=== PATIENT | female | born 1950 | race Caucasian/White ===

== ENCOUNTER 2017-06-25 10:46 | Outpatient (CLI) | payer MEDICARE, MEDICAID ==
[~2017-06-25] VITALS: Ht 160 cm; Wt 104.1 kg
--- NOTE | ~2017-06-25 | HEMODYNAMI ---
PATIENT:SOHAIL JORGE MEDICAL RECORD: [id number] : 52 LOCATION:[facility] ADMISSION DATE: 06/25/17 Generatedon:06/25/201714:01 Patient name: SOHAIL JORGE Patient #: [id number] : 1950 Date of study: 06/25/2017 Page: Of Hemodynamic Procedure Report Patient Data Patient Demographics Procedure consent was obtained First Name: SOHAIL Gender: Female Last Name: LUISITO : 1950 Middle Initial: A Age: 66 year(s) Patient #: [id number] Race: Unknown SSN: [id number] Additional ID: [id number] Contact details [address]: [address] [place] [address] State: [place] City: [place] Zip code: [address] Admission Admission Data Admission Date: 06/25/2017 Admission Time: 10:46 Arrival Date: 06/25/2017 Arrival Time: 13:03 Admit Source: Other Insurance Payor: Medicare Height (in.): 63 BSA: 2.06 (m2) Height (cm.): 160.02 BMI: 40.92 (kg/m2) Weight (lbs.): 231 Weight (kg.): 104.78 Lab Results Lab Result Date: 06/25/2017 Lab Result Time: 0:00 Biochemistry Name Units Result Min Max BUN mg/dl 28 --(----)-* 7 18 Creatinine mg/dl 1.6 --(----)-* 0.6 1.3 CBC Name Units Result Min Max Hemoglobin g/dl 13.3 -*(----)-- 13.5 17.5 Procedure Procedure Types Cath Procedure Diagnostic Procedure PPM/ICD PPM Dual Implant Miscellaneous Procedures Moderate Sedation up to 30 minutes Procedure Description Procedure Date Procedure Date: 06/25/2017 Procedure Start Time: 13:24 Procedure End Time: 13:59 Procedure Staff Name Function Sandeep Mariscal MD Performing Physician Hanh BRO Scrub Ana Alexandre RN Nurse Zunilda Gardner RT Monitor Prateek Meng MD Assisting physician Indication Sick Sinus Syndrome Procedure Data Cath Procedure Fluoroscopy Diagnostic fluoroscopy Total fluoroscopy Time: 2.2 time: 2.2 min min Diagnostic fluoroscopy Total fluoroscopy dose: dose: 98.49 mGy 98.49 mGy Contrast Material Contrast Material Type Amount (ml) Isovue 300 0 Estimated blood loss: 5 ml Procedure Complications No complications Procedure Medications Medication Administration Route Dosage Oxygen NC 2 l/min Ancef (1Gm/50ml NS) I.V.P.B 1 g Ancef Irrigation Topical 1 g (1gm/500ml NS) Versed I.V. 1 mg Fentanyl I.V. 50 mcg Hemodynamics Rest BSA: 2.06 (m2) HGB: 13.3 (g/dl) O2 Consumption: Estimated: 174.06 (ml/min) O2 Co nsumption indexed: Estimated:84.5 (ml/min/m) Heart Rate: 46 (bpm) Snapshots Pre Cath Intra NCS Post Cath Vital Signs Time Heart Resp SPO2 NIBP (mmHg) Rhythm Pain Sedation Rate (ipm) (%) Status Level (bpm) 13:02:17 45 22 98 167/65(126) SB 0 (11) 10(A) , No pain 13:07:06 46 21 98 158/66(127) SB 0 (11) 10(A) , No pain 13:11:48 45 20 98 163/73(127) SB 0 (11) 10(A) , No pain 13:16:37 46 18 98 153/63(121) SB 0 (11) 10(A) , No pain 13:21:18 47 19 98 156/69(122) SB 0 (11) 10(A) , No pain 13:26:00 46 20 98 151/68(119) SB 0 (11) 10(A) , No pain 13:30:39 47 17 96 151/73(132) SB 0 (11) 10(A) , No pain 13:35:15 50 19 94 166/81(133) SB 0 (11) 10(A) , No pain 13:40:00 57 18 94 160/77(126) SB 0 (11) 10(A) , No pain 13:44:43 54 17 94 152/73(130) SB 0 (11) 10(A) , No pain 13:49:23 23 19 95 165/72(122) SB 0 (11) 10(A) , No pain 13:54:08 60 17 97 162/77(129) NSR 0 (11) 10(A) , No pain 13:58:53 39 17 97 142/65(114) NSR 0 (11) 10(A) , No pain Medications Time Medication Route Dose Verified Delivered Reason Notes Effective ness by by 13:11:42 Oxygen NC 2 Ana Perez Per l/min Bettie Alexandre RN physician 13:12:16 Ancef I.V.P.B 1 g Ana Perez Per (1Gm/50ml Bettie Alexandre RN physician NS) 13:12:27 Ancef Topical 1 g Marlinie Raman Per Irrigation Bettie CORREA Breving physician (1gm/500ml MD NS) 13:25:04 Versed I.V. 1 mg Ana Isaacie for Bettie Alexandre RN sedation 13:25:10 Fentanyl I.V. 50 Buffie Buffie for mcg Bettie Alexandre RN sedation Procedure Log Time Note 12:41:43 Informed consent obtained and on chart 12:41:52 Diagnostic Cath Status : Elective 12:42:34 Indication : Sick Sinus Syndrome 12:43:04 Admit Source: Other 12:43:06 Arrival Date: 06/25/2017 1:03:00 PM 12:43:22 Insurance Payor : Medicare 12:43:26 Patient Height : 160.02 cm 12:43:39 Patient Weight : 104.78 kg 12:45:48 Lab Result : Creatinine 1.6 mg/dl 12:45:48 Lab Result : BUN 28 mg/dl 12:45:48 Lab Result : Hemoglobin 13.3 g/dl 12:45:55 Ana Alexandre RN sent for patient. Start room use. 12:45:57 Time tracking: Regular hours 12:46:01 Plan of Care:Hemodynamics will remain stable., Cardiac rhythm will remain stable., Comfort level will be maintained., Respiratory function will remain adequate., Patient/ family verbilizes understanding of procedure., Procedure tolerated without complication., Recovers from procedure without complications.. 12:46:22 Patient received from Pre/Post Procedure Room to [facility] 3 Alert and oriented. Tansferred to table in Supine position. 12:46:24 Warm blankets applied, and za hugger turned on for patient comfort. 12:46:24 Correct patient and procedure confirmed by team. 12:46:25 ECG and BP/O2 sat monitors applied to patient. 12:46:37 Use device set Pacemaker Set 12:46:43 Cautery Tip Automotive Machinist opened to sterile field. 12:46:44 Cautery Pushbutton Pencil opened to sterile field. 12:46:52 Immobilizer Extra Large opened to sterile field. 12:47:36 2.0 Ticron Multipack opened to sterile field. 12:47:38 3.0 Vicryl Single Pack [id number] opened to sterile field. 12:47:39 3.0 Vicryl Multipack [id number] opened to sterile field. 12:48:00 avVentatronic Adapta PPM Dual Generator opened to sterile field. 13:00:36 Vital chart was started 13:00:43 Baseline sample Acquired. 13:01:04 Rhythm: unchanged., sinus bradycardia 13:01:06 Full Disclosure recording started 13:03:40 H&P Date Dictated: 06/19/2017 Within 30 days and on chart., H&P Addendum completed by physician on day of procedure. (MUST COMPLETE FOR ALL OUTPATIENTS). 13:03:42 Pre-procedure instructions explained to patient. 13:03:43 Pre-op teaching completed and patient verbalized understanding. 13:03:46 Family in waiting room. 13:03:50 Patient NPO since Midnight. 13:04:14 Is the patient allergic to Iodine/contrast media? No. 13:05:10 Was the patient premedicated? No 13:05:11 Is patient on blood thinner?No 13:05:12 Patient diabetic? Yes. 13:05:13 If diabetic: On Metformin? Yes 13:05:17 If on Metformin: Last Dose? 06/25/2017 13:05:21 Previous problem with sedation/anesthesia? No ? 13:05:22 Snore? Yes 13:05:23 Sleep apnea? No 13:05:24 Deviated septum? No 13:05:24 Opens mouth fully? Yes 13:05:25 Sticks out tongue? Yes 13:05:34 Airway obstruction? No ? 13:05:37 Dentures? No ? 13:05:41 Pre procedure: right dorsailis pedis pulse 1+ Palpable, but thready & weak; easily obliterated 13:05:44 Patient pain scale 0/10 ?. 13:09:39 IV patent on arrival in left forearm with 0.9% NaCl at [facility]. 13:09:45 Lab results completed and on chart. 13:09:49 Left chest area was prepped with chlora-prep and draped in sterile fashion 13:09:51 Alarms reviewed by R. N. 13::51 Sharps counted by scrub and verified by R.N. 13::52 Physician paged 13:11:42 Oxygen 2 l/min NC was administered by Ana Alexandre RN; Per physician; 13:12:16 Ancef (1Gm/50ml NS) 1 g I.V.P.B was administered by Ana Alexandre RN; Per physician; 13:12:27 Ancef Irrigation (1gm/500ml NS) 1 g Topical was administered by Raman Osorio MD; Per physician; 13:12:43 Medtronic 4574-45 PPM Lead opened to sterile field. 13:15:14 Medtronic 4074-52 PPM Lead opened to sterile field. 13:22:54 5.0 Monocryl PS2 [id number] opened to sterile field. 13:23:46 Physician arrived 13:23:47 --------ALL STOP TIME OUT------ 13:23:49 Final Timeout: patient, procedure, and site verified with staff and physician. All members of the team are in agreement. 13:23:51 Left chest site verified by team. 13:23:56 Physical assessment completed. ASA score P 2 - A patient with mild systemic disease as per Sandeep Mariscal MD. 13:24:00 Sedation plan: IV Moderate Sedation Versed, Fentanyl 13:24:39 Procedure started. 13:24:49 Medtronic field representative Jose Lucio present for procedure. 13:25:04 Versed 1 mg I.V. was administered by Ana Alexandre RN; for sedation; 13:25:06 Pre sharps counted by scrub and verified by RN: Sutures: 15 Sponges: 5 Stick needles: 2 Skin needles: 2 Blade: 1 Cautery: 1 13:25:09 Grounding pad site Left thigh. 13:25:10 Fentanyl 50 mcg I.V. was administered by Ana Alexandre RN; for sedation; 13:25:11 Grounding pad site free from injury. 13:28:53 Lidocaine 1% w/epi to left subclavicular area by Prateek Meng MD. 13:28:57 Incision made to left subclavicular area. 13:31:36 Generator pocket made/opened. 13:32:27 Left subclavian vein accessed with 7Fr Safe Sheath. 13:34:51 Ventricular lead inserted and advanced. 13:34:53 Peel-a-way sheath was split and removed. 13:35:54 Left subclavian vein accessed with 7Fr Safe Sheath. 13:36:00 Atrial lead inserted and advanced. 13:36:02 Peel-a-way sheath was split and removed. 13:39:52 Ventricular lead positioned. 13:42:16 Atrial lead positioned. 13:42:26 Ventricular lead attachment was completed with 2-0 ticron. 13:42:29 Atrial lead attachment was completed with 2-0 ticron. 13:49:22 PPM Dual was attached to lead(s) and inserted into pocket. 13:49:47 Generator was sutured in place with 2-0 ticron. 13:50:17 Parameters--Ventricular P/R Wave: 5.0mV. Current: 0.1mA; Threshold: 1.0V; Impedence: 1477OHMS. 13:50:39 Parameters--Atrial P/R Wave: 2.9mV. Current: 0.5mA; Threshold: 0.6V; Impedence: 646OHMS. 13:54:03 Subcutaneous closure was completed with 3-0 vicryl. 13:56:27 Skin closure was completed with 5-0 monocryl. 13:57:20 Lt Chest incision was dressed with Mepilex dressing. 13:57:29 Procedure ended.(Physican Out) 13:57:43 Fluoroscopy time 02.20 minutes. 13:58:01 Fluoroscopy dose: 98.49 mGy 13:58:01 Flurop Dose total: 98.49 13:58:06 Contrast amount:Isovue 300 0ml. 13:58:08 Sharps counted by scrub and verified by R.N. 13:58:09 Insertion/operative site no bleeding no hematoma. 13:58:16 Post left subclavian vein:stable 13:58:19 Post Procedure Pulses reassessed and unchanged 13:58:28 Post procedure rhythm: sinus rhythm , paced 13:58:30 Estimated blood loss: 5 ml 13:58:31 Post procedure instruction explained to patient.Patient verbalizes understanding. 13:58:32 Patient needs reinforcement of post procedure teaching. 13:58:51 Procedure type changed to Cath procedure, Diagnostic procedure, PPM/ICD, PPM Dual Implant, Miscellaneous Procedures, Moderate Sedation up to 30 minutes 13:58:52 Procedure and supply charges have been captured, reviewed, submitted and are correct. 13:58:56 Procedure Complication : No complications 13:59:00 Vital chart was stopped 13:59:00 See physician's report for complete and final results. 13:59:03 Report given to Med II. 13:59:06 Patient transfered to Med II with Stretcher. 13:59:08 Procedure ended. 13:59:08 Full Disclosure recording stopped 13:59:12 End room use (Document Last) Device Usage Item Name Manufacture Quantity Catalog Hospital Part Current Minimal Lot# / Number Charge Number Stock Stock Serial# Code Cautery Tip Microtek 1 [id number] [id number] [id number] 5 [employer] Inc. Cautery Microtek 1 [id number] 394550 07910 136655 5 Pushbutton [employer] Inc. Pencil Immobilizer [place] 1 [id number] [id number] 011193 443915 5 Extra Large Health 2.0 Ticron Ethicon 4 [id number] 472632 73427 755015 5 Multipack 3.0 Vicryl Ethicon 1 [id number] 382938 099269 770217 5 Single Pack [id number] 3.0 Vicryl Ethicon 1 [id number] 774702 877877 493063 5 Multipack [id number] Medtronic Medtronic 1 [id number] 605184 990230 5 [id number] Adapta PPM UPA03-10-21 Dual Generator Medtronic Medtronic 1 4574-45 298161 811435 5 [id number] 4574-45 PPM EXP Lead 11-14-2018 Medtronic Medtronic 1 4074-52 832971 289866 5 [id number] 4074-52 PPM EXP Lead 06-05-2018 5.0 Ethicon 1 [id number] 325451 426918 258855 5 Monocryl PS2 Y495G Signature Audit [place] Stage Time Signature Unsigned Intra-Procedure 06/25/2017 Zunilda Gardner 2:01:10 PM RT(R) Signatures Monitor : Zunilda Gardner RT Signature : Date : Time : [address] [place] [id number]
[2017-06-25] MEDS ORDERED: GLUCOPHAGE500 MG PO (11:04)
[2017-06-25] MEDS ORDERED: METFORMIN HCL500 M1 PO (11:04)
[2017-06-25] MEDS ORDERED: BAYER CHEWABLE81 MG PO (11:05)
[2017-06-25] MEDS ORDERED: GLUCOTROL 5 MG T5 MG PO ×2 (11:05)
[2017-06-25] MEDS ORDERED: NEURONTIN 300300 MG PO (11:06)
[2017-06-25] MEDS ORDERED: PRINIVIL10 MG PO (11:07)
[2017-06-25] MEDS ORDERED: XANAX2 MG PO (11:08)
[2017-06-25 11:12] VITALS: BP 156/81; BMI 40.6
[2017-06-25 11:19] LABS: HEMATOCRIT 41.6 % (36.0-48.0); HEMOGLOBIN 13.3 g/dL (12-16); MCH 30.6 pg (26.0-34.0); MCV 95.6 fL (80.0-100.0); RBC 4.35 10x6/uL (4.00-5.40); WBC 10.7 10x3/uL (4.8-10.8)
[2017-06-25 11:35] LABS: ANION GAP 13.5 mmol/L (8-16); CALCIUM 9.7 mg/dL (8.5-10.1); CARBON DIOXIDE 29.6 mmol/L (21.0-32.0); CREATININE - SERUM 1.6 mg/dL (0.6-1.3); POTASSIUM - SERUM 5.1 mmol/L (3.5-5.1)
[2017-06-25 12:12] LABS: APTT 23.7 SECONDS (22.8-39.4); INR 0.96 (0.85-1.17); PROTIME 12.7 SECONDS (11.6-15.0)
--- NOTE | 2017-06-25 14:23 | NUR ---
TRANSFER FROM PLANNING ENGINEER. VS WNL. LEFT CHEST DRSG CLEAN AND DRY. LEFT ARM IN SLING. WILL CONT. PLAN OF CARE.
[2017-06-25 14:25] VITALS: BP 152/62; Ht 160 cm; Wt 104.1 kg
--- NOTE | 2017-06-25 19:23 | NUR ---
RESUMED CARE OF PT, LYING IN BED RESPIRATIONS EVEN AND UNLABORED ON ROOM AIR. 60 SR ON TELEMETRY. LEFT CHEST DRESSING C/D/I AND LEFT SLING IN PLACE. NO NEEDS NOTED AT THIS TIME, WILL CONTINUE TO MONITOR. SEE NURSE ASSESSMENT.
[2017-06-25 20:00] VITALS: BP 107/59
--- NOTE | 2017-06-26 01:07 | NUR ---
CALL LIGHT IN REACH. WILL CONTINUE TO MONITOR.
[2017-06-26 05:11] VITALS: BP 122/65
--- NOTE | 2017-06-26 08:14 | OP ---
PATIENT NAME: SOHAIL JORGE MEDICAL RECORD: [id number] :52 LOCATION:D.M2 D.2115 ADMISSION DATE: SURGEON: YANELY MORENO MD DATE OF OPERATION: 06/25/2017 PROCEDURE: Lead portion of permanent pacemaker placement. SURGEON: Prateek Meng MD. INDICATION: Symptomatic bradyarrhythmias. DESCRIPTION OF PROCEDURE: After left subclavian vein was cannulated, Dr. Meng did the modified Seldinger technique. First, under fluoroscopic guidance, I placed the RV lead in the RV apex without difficulty. Next, after adequate thresholds and R-wave were obtained, again under fluoroscopic guidance, I placed the right atrial lead into the right atrial appendage without difficulty. After P-waves and thresholds were obtained, the leads were attached to appropriate poles of the generator and the pocket was closed by Dr. Meng. IMPRESSION: Successful lead portion of permanent pacemaker placement. ESTIMATED BLOOD LOSS: Minimal. DISPOSITION: To the floor, stable. COMPLICATIONS: None. TRANSINT:[id number] Voice Confirmation ID: [id number] DOCUMENT ID: [id number] YANELY MORENO MD at 0814 CC: [id number] DICTATION DATE: 06/25/17 1354 MANAGER MUTUAL FUND: 06/25/172027 REG [facility] [address] [place] [address]
[2017-06-26 08:33] VITALS: BP 127/55
--- NOTE | 2017-06-26 09:58 | NUR ---
TELEMETRY PACED. METRONICS INTEROGATED PACEMAKER. LEFT CHEST DRSG CLEAN AND DRY. LEFT ARM IN SLING. UP TO CHAIR WITH CALL LIGHT IN REACH. WILL CONT. PLAN OF CARE.
--- NOTE | 2017-06-26 10:29 | NUR ---
IV AND TELEMETRY DCD. DC PLANS GIVEN. UNDERSTANDING VOICED. ESCORTED TO CAR BY W/C.
--- NOTE | 2017-06-28 14:41 | OP ---
PATIENT NAME: SOHAIL JORGE MEDICAL RECORD: [id number] :52 LOCATION:D.CAT ADMISSION DATE: SURGEON: PRATEEK LEBLANC MD DATE OF OPERATION: 06/25/2017 PREOPERATIVE DIAGNOSES: 1. Sick sinus syndrome. 2. Hypertension. 3. Hyperlipidemia. 4. Diabetes mellitus. POSTOPERATIVE DIAGNOSES: 1. Sick sinus syndrome. 2. Hypertension. 3. Hyperlipidemia. 4. Diabetes mellitus. PROCEDURE: Left subclavian vein dual lead pacemaker placement. SURGEON: Prateek Leblanc MD REPORT OF PROCEDURE: The patient's left chest was prepped and draped in sterile fashion. A 20 mL of 1% lidocaine was infused into the subcutaneous tissues. A skin incision was then made on the superior lateral aspect of the left chest. A subcutaneous pouch was made overlying the pectoral fascia. We then accessed the left subclavian vein with 2 separate sticks and was able to advance guidewires with ease. Fluoro was used to note that the wires were in good position in the venous system. The dilator trocar devices were placed over the wires and the wire and dilators were removed. The pacemaker leads were advanced through the trocars with ease. At this point, Dr. Mariscal positioned the leads in a good position in the atrium and ventricle. Once these were tested and noted to be in good working position, then the trocars were removed. The leads were sutured into place with 0 Ti-Cron. They are affixed to the pacemaker and the pacemaker was placed in the subcutaneous pouch. The pacemaker was sutured to the pouch using a subcutaneous 0 Ti-Cron. We then irrigated out the wound thoroughly with antibiotic solution. The subcutaneous tissues were reapproximated with interrupted 3-0 Vicryls and the skin was closed with running subcutaneous 5-0 Monocryl. COMPLICATIONS: None. CONDITION: Stable. ANESTHESIA: Local. BLOOD LOSS: Minimal. TRANSINT:[id number] Voice Confirmation ID: [id number] DOCUMENT ID: [id number] OPERATIVE REPORT [id number] LUISITOSOHAIL Danni PRATEEK LEBLANC MD at 1441 CC: [id number] DICTATION DATE: 06/25/17 1416 WHEEL AND PINION INSPECTOR: 06/25/172041 DEP CLI 06/26/17 [place] [address] [place] [address]
== END 2017-06-26 10:31 | disposition home or self-care (01) ==
LOC: D.CATH 10:46 → D.M2 14:12 → D.CATH 06-26 10:31
PROVIDERS: Internal Medicine Interventional Cardiology
DX: I49.5 Sick sinus syndrome (principal); I10 Essential (primary) hypertension; E11.9 Type 2 diabetes mellitus without complications; Z01.812 Encounter for preprocedural laboratory examination

== ENCOUNTER 2018-02-21 21:23 | Emergency (ER) | payer OTHER, MEDICAID ==
[2017-06-25 14:25] VITALS: BMI 40.6
[~2018-02-21 21:23] MED LIST: BAYER CHEWABLE81 MG PO; GLUCOPHAGE500 MG PO; GLUCOTROL 5 MG T5 MG PO; METFORMIN HCL500 M1 PO; NEURONTIN 300300 MG PO; PRINIVIL10 MG PO; XANAX2 MG PO
== END 2018-02-21 22:42 | disposition home or self-care (01) ==
LOC: D.ER 21:23
DX: S60.511A Abrasion of right hand, initial encounter (principal); W19.XXXA Unspecified fall, initial encounter; Y93.89 Activity, other specified; Y92.019 Unspecified place in single-family (private) house as the place of occurrence of the external cause; S00.93XA Contusion of unspecified part of head, initial encounter; E11.9 Type 2 diabetes mellitus without complications; I10 Essential (primary) hypertension

== ENCOUNTER 2018-12-24 15:38 | Emergency (ER) | payer OTHER, MEDICAID ==
[~2018-12-24] VITALS: Ht 160 cm; Wt 102.5 kg
[2018-12-24 15:54] VITALS: Ht 160 cm; Wt 102.5 kg
[2018-12-24] MEDS ORDERED: CELEXA10 MG PO (15:56)
[2018-12-24 16:42] LABS: BASOPHILS 0.9 % (0-2); EOSINOPHILS 1.2 % (0-7); HEMATOCRIT 36.5 % (36.0-48.0); HEMOGLOBIN 11.8 g/dL (12-16); IMMATURE GRANULOCYTES 0.1 % (0-5); LYMPHOCYTES 34.4 % (15-50); MCH 30.7 pg (26.0-34.0); MCHC 32.3 g/dL (31.0-37.0); MCV 95.1 fL (80.0-100.0); MEAN PLATELET VOLUME 9.4 fL (7.4-10.4); MONOCYTES 6.4 % (2-11); PLATELET COUNT 290 10x3/uL (130-400); RBC 3.84 10x6/uL (4.00-5.40); RDW 12.7 % (11.5-14.5); WBC 7.6 10x3/uL (4.8-10.8)
[2018-12-24 16:51] LABS: APTT 25.2 SECONDS (22.8-39.4); INR 1.01 (0.85-1.17); PROTIME 12.8 SECONDS (11.6-15.0)
[2018-12-24 16:56] LABS: ALBUMIN 3.3 g/dL (3.4-5.0); ALKALINE PHOSPHATASE 66 U/L (46-116); ALT (SGPT) 31 U/L (10-68); BILIRUBIN - TOTAL 0.19 mg/dL (0.2-1.3); CALC OSMOLALITY 287 mosm/kg (275-300); CALCIUM 8.3 mg/dL (8.5-10.1); CARBON DIOXIDE 29.4 mmol/L (21.0-32.0); CHLORIDE - SERUM 104 mmol/L (98-107); CREATININE - SERUM 1.6 mg/dL (0.6-1.3); POTASSIUM - SERUM 4.8 mmol/L (3.5-5.1); PROTEIN - SERUM 7.6 g/dL (6.4-8.2); SODIUM 140 mmol/L (136-145); UREA NITROGEN 30 mg/dL (7-18); eGFR NON AFRICAN AMERICAN 34 mL/min (90-120)
[2018-12-24 16:57] LABS: GLUCOSE 156 mg/dL (74-106)
[2018-12-24 17:07] LABS: CKMB 1.4 U/L (0.0-3.6); CREATINE KINASE 66 UL (21-215); MAGNESIUM - SERUM 1.8 mg/dL (1.8-2.4); TROPONIN-I < 0.017 ng/mL (0.000-0.060)
[2018-12-24] MEDS ORDERED: VIBRAMYCIN 100100 MG PO (19:18)
[2018-12-24 20:22] VITALS: BP 161/74
== END 2018-12-24 20:22 | disposition home or self-care (01) ==
LOC: D.ER 15:38
PROVIDERS: Emergency Medicine
DX: R07.89 Other chest pain (principal); I12.9 Hypertensive chronic kidney disease with stage 1 through stage 4 chronic kidney disease, or unspecified chronic kidney disease; N18.9 Chronic kidney disease, unspecified; E11.9 Type 2 diabetes mellitus without complications; R05 Cough

== ENCOUNTER → 2019-03-22 08:41 | Outpatient (CLI) | payer MEDICARE, MEDICAID ==
[2018-12-24 15:54] VITALS: BMI 40.6
[~2019-03-22 08:41] MED LIST changes: +CELEXA10 MG PO; +VIBRAMYCIN 100100 MG PO
== END | disposition home or self-care (01) ==
LOC: D.US 08:41
DX: E11.40 Type 2 diabetes mellitus with diabetic neuropathy, unspecified (principal)

== ENCOUNTER 2019-06-15 14:03 | Emergency (ER) | payer MEDICARE, MEDICAID ==
[~2019-06-15] VITALS: Ht 160 cm; Wt 90.9 kg
[2019-06-15 14:04] VITALS: Ht 160 cm; Wt 90.9 kg
[2019-06-15 17:12] VITALS: BP 105/43
== END 2019-06-15 17:02 | disposition home or self-care (01) ==
LOC: D.ER 14:03
DX: S01.81XA Laceration without foreign body of other part of head, initial encounter (principal); W01.0XXA Fall on same level from slipping, tripping and stumbling without subsequent striking against object, initial encounter; M25.551 Pain in right hip; R51 Headache; M54.2 Cervicalgia

== ENCOUNTER 2019-07-01 14:31 | Emergency (ER) | payer MEDICARE, MEDICAID ==
[~2019-07-01] VITALS: Ht 160 cm; Wt 92.7 kg
[2019-07-01 14:33] VITALS: Ht 160 cm; Wt 92.7 kg
[2019-07-01] MEDS ORDERED: EC-NAPROSYN500 MG PO (15:40)
[2019-07-01 16:04] VITALS: BP 118/45
== END 2019-07-01 16:05 | disposition home or self-care (01) ==
LOC: D.ER 14:31
DX: M19.021 Primary osteoarthritis, right elbow (principal)

== ENCOUNTER 2020-04-10 16:08 | Emergency (ER) | payer MEDICARE, MEDICAID ==
[~2020-04-10] VITALS: Ht 160 cm; Wt 110.5 kg
[~2020-04-10 16:08] MED LIST changes: +EC-NAPROSYN500 MG PO
[2020-04-10 16:35] VITALS: Ht 160 cm; Wt 110.5 kg
[2020-04-10] MEDS ORDERED: LIPITOR20 MG PO (16:40)
[2020-04-10] MEDS ORDERED: KLOR-CON 1010 MEQ PO (16:41)
[2020-04-10] MEDS ORDERED: TORADOL10 MG PO (17:32)
[2020-04-10 18:18] VITALS: BP 122/63
== END 2020-04-10 18:18 | disposition home or self-care (01) ==
LOC: D.ER 16:08
DX: S16.1XXA Strain of muscle, fascia and tendon at neck level, initial encounter (principal); S00.93XA Contusion of unspecified part of head, initial encounter; W01.10XA Fall on same level from slipping, tripping and stumbling with subsequent striking against unspecified object, initial encounter; Y93.9 Activity, unspecified; Y92.9 Unspecified place or not applicable; E11.9 Type 2 diabetes mellitus without complications; E03.9 Hypothyroidism, unspecified; Z95.0 Presence of cardiac pacemaker; K21.9 Gastro-esophageal reflux disease without esophagitis; Z79.84 Long term (current) use of oral hypoglycemic drugs

== ENCOUNTER → 2020-04-10 16:24 | Outpatient (CLI) | payer MEDICARE, MEDICAID ==
[2019-07-01 14:33] VITALS: BMI 36.2
[~2020-04-10 16:24] MED LIST changes: +KLOR-CON 1010 MEQ PO; +LIPITOR20 MG PO; +TORADOL10 MG PO
[2020-04-10 17:15] LABS: ANION GAP 10.6 mmol/L (8-16); CALCIUM 9.2 mg/dL (8.5-10.1); CARBON DIOXIDE 28.4 mmol/L (21.0-32.0); CREATININE - SERUM 1.6 mg/dL (0.6-1.3)
[2020-04-11 01:30] LABS: HEMATOCRIT 38.2 % (36.0-48.0); HEMOGLOBIN 11.6 g/dL (12-16); MCH 30.3 pg (26.0-34.0); MCHC 30.4 g/dL (31.0-37.0); MCV 99.7 fL (80.0-100.0); MEAN PLATELET VOLUME 9.8 fL (7.4-10.4); PLATELET COUNT 315 10x3/uL (130-400); RBC 3.83 10x6/uL (4.00-5.40); WBC 7.6 10x3/uL (4.8-10.8)
[2020-04-11 10:47] LABS: EOSINOPHILS 3 % (0-7); LYMPHOCYTES 45 % (15-50); MONOCYTES 1 % (2-11); NEUTROPHILS 50 % (40-80); PLATELET ESTIMATE NORMAL
== END | disposition home or self-care (01) ==
LOC: D.LABREF 16:24
PROVIDERS: ATTEND Legal Medicine
DX: E78.5 Hyperlipidemia, unspecified (principal); I10 Essential (primary) hypertension

== ENCOUNTER → 2021-01-01 10:32 | Outpatient (CLI) | payer MEDICARE, MEDICAID ==
[2020-04-10 16:35] VITALS: BMI 43.1
--- NOTE | 2021-01-02 13:41 | EC ---
PATIENT:SOHAIL JORGE DATE OF SERVICE: 01/01/21 SEX: F MEDICAL RECORD: [id number] DATE OF : 52 LOCATION:D.[facility] AGE OF PATIENT: 70 ADMISSION DATE: 01/01/21 REFERRING PHYSICIAN: INTERPRETING PHYSICIAN: YANELY MORENO MD ECHOCARDIOGRAM REPORT ECHO CHARGES 4 ECHO COMPLETE Date: 01/01/21 CLINICAL DIAGNOSIS: ASSESS EF AND MITRAL REGURG HX OF HTN/EDEMA/PACEMAKER ECHOCARDIOGRAPHIC MEASUREMENTS (adult normal given) AC root (d.<3.7cm) 3.0 cm LV Septum d (<1.2 cm> 1.3 cm Valve Excursion 1.3 cm LV Septum (systole) 1.5 cm Left Atria (s.<4.0cm> 3.7 cm LVPW d(<1.2cm) 1.5 cm RV (d.<2.3cm) 3.1 cm LVPW (sytole) 1.7 cm LV diastole(<5.6CM) 4.8 cm MV E-F(>70mm/sec) cm LV systole 3.4 cm LVOT Diameter 1.5 cm MV exc.(>10mm) cm Est.ejection fraction (50-75%) % DOPPLER: LVIT cm/sec A 73.0 cm/sec E 54.0 cm/sec LA cm/sec RVSP 32 mmHg LVOT 91 cm/sec AOP1/2T m/s Asc. Ao 149 cm/sec RVOT 88 cm/sec RA cm/sec PA 125 cm/sec AV Gradient Peak 8.88 mmHg AV Mean 4.37 mmHg AV Area 1.2 cm MV Gradient Peak 3.46 mmHg MV Mean 0.97 mmHg MV Area cm COMMENTS: Society Editor: 2 EMIL HERNANDEZ Coiler Operator: 3 Dr. Mariscal TAPE# PACS Pericardial Effusion N DATE OF SERVICE: Adequate 2D, color-flow imaging, spectral Doppler, and M-Mode FINDINGS: Mild LVH. LV internal dimensions are normal. Wall motion is normal. EF is greater than or equal to 55%. Aortic valve is tricuspid. No evidence of stenosis by Doppler interrogation. Left atrium is normal at 3.7 cm. Mitral valve shows no prolapse. Trace MR. Right side is grossly normal. Mild TR. Incidental note is made of a pacemaker lead in the RV apex. ECHOCARDIOGRAM REPORT [id number] SOHAIL JORGE TRANSINT:[id number] Voice Confirmation ID: [id number] DOCUMENT ID: [id number] YANELY MORENO MD at 1341 CC: [id number] DICTATION DATE: 01/02/21815 ART TRACER: 01/02/21 1249 DEP CLI 01/01/21 [place] [id number] [place] [id number]
== END | disposition home or self-care (01) ==
LOC: D.HCCECHO 10:32
PROVIDERS: ATTEND Internal Medicine Interventional Cardiology
DX: I10 Essential (primary) hypertension (principal)